=== PATIENT | male | born 1955 | race Caucasian/White ===

== ENCOUNTER → 2023-11-28 10:11 | Outpatient (BNVA) | payer MEDICARE, SELFPAY | PROVIDERS: PCP Family Medicine; Referring Provider Family Medicine; Visit Provider Nurse Practitioner Gerontology | DX: N43.3 Hydrocele, unspecified (principal) | CPT/HCPCS: 99204 ==

== ENCOUNTER 2023-12-04 07:00 | Day surgery (SDC) | payer MEDICARE, SELFPAY ==
[2023-12-04] VITALS (9 sets, daily range): BP systolic 83–143; BP diastolic 49–86; PULSE 61–76; RESP 13–16; TEMP 36.1–36.6; O2SAT 96; BMI 28.8
[2023-12-04] MEDS: Lactated Ringers 1,000 ML 80 ML IV (07:48)
--- NOTE | 2023-12-04 08:35 | W.PM.HP.N ---
Date of service: 12/04/23 Time of Service: 08:35 Assessment and Plan Assessment and plan (1) Hydrocele: Status: Acute Assessment and plan: Since his hydrocele is symptomatic, we will proceed with hydrocelectomy History of Present Illness History of Present Illness Chief Complaint: Right hydrocele Narrative: This is a 68 year old man who has a history of right scrotal enlargement that has been present for a few months. More recently, the right hemiscrotum has been increasing in size and becoming more uncomfortable. He was evaluated at another institution with a scrotal ultrasound. A large right hydrocele is described. He has not had any prior scrotal surgery. He has had a prior left inguinal hernia repair. Review of Systems Narrative: No fevers or chills No vision change or dysphasia No diabetes or thyroid dysfunction No shortness of breath, cough or hemoptysis No chest pain or palpitations No hepatitis, ulcers, jaundice, diarrhea or constipation No seizures, strokes or peripheral neuropathy No bleeding disorders or anemia Arthralgia, carpal tunnel. No gout PFSH All Active Problems (Updated 11/29/23 @ 14:34 by Kwaku Friedman) Hydrocele (Acute) Cubital tunnel syndrome (Acute) Bilateral knee pain (Acute) Bilateral hip pain (Acute) Acquired hallux valgus of right foot (Acute) Cubital tunnel syndrome on right (Acute) Right carpal tunnel syndrome (Acute) Medical History (Updated 11/29/23 @ 14:34 by Kwaku Friedman) Amputation toe Hallux valgus of right foot Screening for malignant neoplasm of prostate Routine adult health maintenance Impaired glucose tolerance Chest pain Stress related Lack of energy Low back pain Hypertension Psychophysiologic insomnia Impotence Hyperlipidemia Surgical History (Updated 11/29/23 @ 14:34 by Kwaku Friedman) Hx of knee surgery History of appendectomy H/O hernia repair Hx of colonoscopy Family History Daughter Epilepsy Social History Smoking/Tobacco Use Status: Never Smoking risk assessment performed?: Yes Alcohol Intake: current Alcohol Intake frequency: a few times a month Details: OCCASTIONALLY Drug use: Never Substance use type: does not use Housing: house Additional Social history: Unable to assess privately Meds Allergies and Home Medications Allergies Allergy/AdvReac Type Severity Reaction Status Date / Time manfredpril AdvReac cough Verified 12/04/23 07:27 Home Medications Medication Instructions Recorded Confirmed Type metoprolol succinate 100 mg 100 mg PO DAILY 07/11/17 12/04/23 History tablet,extended release 24 hr nitroglycerin 0.4 mg sublingual 0.4 mg sublingual Q5 MIN PRN X3 PRN 07/11/17 12/04/23 History tablet (Nitrostat) acetaminophen 500 mg tablet 500 mg PO .Q4-6 HRS PRN 04/23/20 12/04/23 History (Tylenol Extra Strength) ibuprofen 400 mg tablet 400 mg PO DAILY PRN 04/23/20 12/04/23 History atorvastatin 40 mg tablet 40 mg PO DAILY 11/22/23 12/04/23 History coenzyme Q10 75 mg capsule (Ultra 75 mg PO DAILY 11/22/23 12/04/23 History CoQ10) vitamin B complex (B 1 tab PO DAILY 11/22/23 12/04/23 History Complex-Vitamin B12 tablet) Exam Const General: cooperative and comfortable Neck Neck: supple Resp Effort & Inspection: normal respiratory effort Auscultation: clear to auscultation bilaterally Cardio Rate: regular rate Rhythm: regular rhythm GI Palpation: soft and no masses Neuro General: patient alert, patient awake and patient oriented x3 Results Imaging Additional studies: He had a scrotal ultrasound at [facility] 11/14/2023 that reports a large right hydrocele with normal testes Last Vital Signs Temp 36.6 C 12/04/23 07:29 Pulse 68 12/04/23 07:29 Resp 16 12/04/23 07:29 BP 143/86 H 12/04/23 07:29 Pulse Ox 96 12/04/23 07:29 Time Spent Time spent with Patient: <40 minutes Time was spent: other
--- NOTE | 2023-12-04 08:54 | W.ANESPRE ---
General Info Date of Service Date Performed: 12/04/23 Height: 5 ft 9 in Weight: 88.451 kg Body Mass Index (BMI): 28.8 Surgical Procedure: Operation Date: 12/04/23 08:40 Proposed Procedure Side Surgeon p Hydrocelectomy Right Luis Castro MD Meds Allergies and Home Medications Allergies Allergy/AdvReac Type Severity Reaction Status Date / Time lisinopril AdvReac cough Verified 12/04/23 07:27 Home Medication Medication Instructions Recorded metoprolol succinate 100 mg 100 mg PO DAILY 07/11/17 tablet,extended release 24 hr nitroglycerin 0.4 mg sublingual 0.4 mg sublingual Q5 MIN PRN X3 PRN 07/11/17 tablet (Nitrostat) acetaminophen 500 mg tablet 500 mg PO .Q4-6 HRS PRN 04/23/20 (Tylenol Extra Strength) ibuprofen 400 mg tablet 400 mg PO DAILY PRN 04/23/20 atorvastatin 40 mg tablet 40 mg PO DAILY 11/22/23 coenzyme Q10 75 mg capsule (Ultra 75 mg PO DAILY 11/22/23 CoQ10) vitamin B complex (B 1 tab PO DAILY 11/22/23 Complex-Vitamin B12 tablet) Current Visit Medications: Current Medications Generic Name Dose Route Start Last Admin Trade Name Freq PRN Reason Stop Dose Admin Ringer's Solution 1,000 mls @ 80 mls/hr 12/04/23 06:00 12/04/23 07:48 IV 12/04/23 23:59 80 mls/hr INFUSION MOHSEN Administration Cefazolin Sodium/Dextrose 2 gm in 50 mls @ 100 mls/hr 12/04/23 06:00 Ancef Duplex IVPB 12/04/23 23:59 PREOP MOHSEN IV Miscellaneous Supplies 1 each 12/04/23 06:00 Iv Access IV 12/04/23 23:59 DIRECTED MOHSEN Sodium Chloride 0 ml 12/04/23 06:00 Normal Saline Flush 10 Ml Syr IV 12/04/23 23:59 PRN PRN Sodium Chloride 0 ml 12/04/23 06:00 Normal Saline 10 Ml Vial IJ 12/04/23 23:59 DIRECTED PRN Sterile Water 0 ml 12/04/23 06:00 Water,Injection,Sterile 10 Ml Vial IJ 12/04/23 23:59 DIRECTED PRN PFSH Active Problems Active Problems: Problem Status Onset Code Hydrocele N43.3 Cubital tunnel syndrome G56.20 Bilateral knee pain M25.561, M25.562 Bilateral hip pain M25.551, M25.552 Acquired hallux valgus of right foot M20.11 Cubital tunnel syndrome on right G56.21 Right carpal tunnel syndrome G56.01 Medical History Medical History (Updated 11/29/23 @ 14:34 by Kwaku Friedman) Amputation toe Hallux valgus of right foot Screening for malignant neoplasm of prostate Routine adult health maintenance Impaired glucose tolerance Chest pain Stress related Lack of energy Low back pain Hypertension Psychophysiologic insomnia Impotence Hyperlipidemia Surgical History Surgical History (Updated 11/29/23 @ 14:34 by Kwaku Friedman) Hx of knee surgery History of appendectomy H/O hernia repair Hx of colonoscopy Tobacco Smoking/Tobacco Use Status: Never Alcohol Alcohol Intake: current Alcohol intake frequency: a few times a month Details: OCCASTIONALLY Substance Use Substance use: Never Substance use type: does not use Vital Signs and Lab Results Vital Signs Most Recent Vital Signs in EMR: Most Recent Vital Signs Temp Pulse Resp BP Pulse Ox 36.6 C 68 16 143/86 H 96 12/04/23 07:29 12/04/23 07:29 12/04/23 07:29 12/04/23 07:29 12/04/23 07:29 Lab Results Blood Type / Crossmatch: No Data to Display Complete Blood Count: No Data to Display Complete Metabolic Panel: No Data to Display Liver Function Panel: No Data to Display Coagulation Panel: No Data to Display Cardiac Panel: No Data to Display Arterial Blood Gas: No Data to Display Venous Blood Gas: No Data to Display Pancreas Panel: No Data to Display Thyroid Panel: No Data to Display Infectious Disease: No Data to Display Blood Cultures: No Data to Display Toxicology Panel: No Data to Display Anesthesia Assessment and Plan Anesthesia History Personal History: No History of Anesthesia Complications Family History: No Family History of Anesthesia Complications Exercise Tolerance Exercise Tolerance: Metabolic Equivalents>4 Pertinent Negatives Pertinent Negatives: No Symptoms of GERD Cardiac & Pulmonary Exam Cardiac Exam: Normal S1/S2 Heart Sounds Pulmonary Exam: Clear Bilateral Breath Sounds Implantable Cardiac Device Does patient have a Pacemaker or an ICD?: No Airway Exam Known Difficult Airway: No Mallampati Class: 2 Mouth Opening: Normal (> 3cm) Thyromental Distance: Greater than 3 cm Neck Range of Motion: Full ROM Neck Circumference: Normal Teeth Condition: Normal Dentition ASA Classification ASA Score: ASA 2 Emergency Case?: No NPO Status NPO Status: NPO Clears >2 hours, Solids >8 hours Anesthesia Plan Resuscitation Status: Full Code Anesthesia Technique: General Anesthesia Airway Planned: LMA Monitors Used: Standard Monitors
[2023-12-04] MEDS: ceFAZolin 2 GM/50 ML BAG IVPB (09:21)
[2023-12-04] MEDS: Bacitracin 1 PACKET (09:28)
[2023-12-04] MEDS: Bupivacaine 0.25% Pres-Free 30 ML VIAL (09:28)
--- NOTE | 2023-12-04 09:55 | W.PM.DSUDISC ---
Date of service: 12/04/23 Time of Service: 09:55 Discharge Plan Disposition Patient Disposition: Home Condition: Stable Discharge Details Reason For Visit: hydrocelectomy Attending Provider: Luis Castro Primary Care Provider: Irving Yang Home Meds and New Rx's Prescriptions: New oxycodone 5 mg tablet 5 - 10 mg PO Q6H PRN (Reason: pain) Qty: 20 0RF No Action ibuprofen 400 mg tablet 400 mg PO DAILY PRN acetaminophen [Tylenol Extra Strength] 500 mg tablet 500 mg PO .Q4-6 HRS PRN atorvastatin 40 mg tablet 40 mg PO DAILY Ultra CoQ10 75 mg capsule 75 mg PO DAILY vitamin B complex [B Complex-Vitamin B12] Tablet 1 tab PO DAILY metoprolol succinate 100 MG tablet extended release 24 hr 100 mg PO DAILY nitroglycerin [Nitrostat] 0.4 MG tablet, sublingual 0.4 mg Sublingual Q5 MIN PRN X3 PRN Discharge Instructions Additional Instructions: scrotal support until swelling resolves ice pack to scrotum (bag of frozen peas) on 30 min off 30 min while awake followup 1 to 2 weeks Activity:: no lifting over 10 pounds until followup visit Remove Dressings/Wound Care:: 24 hours Shower/Bathe:: 24 hours Diet:: As Tolerated Discharge Orders Discharge Orders: Discharge Order (Routine); Ordered 12/04/23 Ordered By: Luis Castro DS: Diagnosis Discharge Diagnosis (1) Hydrocele: Status: Acute
--- NOTE | 2023-12-04 10:00 | W.PM.OP ---
Date of service: 12/04/23 Time of Service: 10:00 Operative Note Operative Note DATE OF PROCEDURE: 12/04/23 PRE-OP DIAGNOSIS: right hydrocele POST-OP DIAGNOSIS: same PROCEDURE: Right hydrocelectomy SURGEON: Luis Castro SPRINKLER INSPECTOR: Rahul Hubbard ANESTHESIA TYPE: Local By Surgeon and General:No Airway Refer to Anesthesia Record ESTIMATED BLOOD LOSS: 5 PATHOLOGY: none sent COMPLICATIONS: None Patient was transported to: PACU Patient's condition: stable Implants: none Indications: This is a 68-year-old gentleman who has noticed a progressively increasing right scrotal mass over the past 3 to 4 months. He was evaluated with a scrotal ultrasound which demonstrated a large hydrocele with a normal underlying testis. Since the hydrocele was symptomatic for him, he has elected to move ahead with a hydrocelectomy Findings: large right hydrocele two small keratin pearlys normal appearing testes Procedure Description: The patient was given IV antibiotics and brought to the operating room on 12/04/2023. After successful induction of general anesthesia, he was placed in the supine position. His genitalia was prepped and draped. A scrotal field block was performed using quarter percent Marcaine. A transverse scrotal incision was made and the incision was extended down through the dartos muscle. We then came up on the anterior surface of the hydrocele. We were then able to shell out the enlarged testis still within the tunica vaginalis from the overlying dartos muscle. The testis and hydrocele were then delivered through the incision. The hydrocele sac was opened anteriorly and a large amount of yellowish fluid was drained. The underlying testis appeared normal. 2 small keratin pearls were identified within the hydrocele sac. The access hydrocele sac was excised using the Bovie. The sac was then everted behind the testis and the edges of the sac were reapproximated with a running 3-0 chromic suture. We used locking sutures for hemostasis. Once hemostasis had been obtained, a cord block was performed using quarter percent Marcaine. The testis was then delivered back within the right hemiscrotum. The dartos muscle was reapproximated with simple interrupted 3-0 chromic sutures. The skin was closed with simple interrupted 4-0 Vicryl sutures. Dermabond was applied followed by a fluff dressing and a scrotal support. The patient tolerated this procedure well with no complications. He was taken to the recovery room in stable condition.
--- NOTE | 2023-12-04 11:10 | W.ANESPOSTOP ---
Postoperative Evaluation Date, Time and Location Date Performed: 12/04/23 Time Performed: 11:11 Patient Location: Day Surgery Unit Vital Signs Most Recent Imported Vital Signs: Most Recent Vital Signs Temp Pulse Resp BP Pulse Ox 36.2 C L 72 16 103/75 96 12/04/23 10:51 12/04/23 10:51 12/04/23 10:51 12/04/23 10:51 12/04/23 10:51 Pain Score Most Recent Pain Score: Most Recent Pain Score Pain Level 0 12/04/23 10:51 Assessment Mental Status: Awake (Alert & Oriented to Patient Baseline) Airway and Respiratory Function: Patent airway with normal (patient baseline) respiratory exam Cardiovascular Function: Hemodynamically Stable Hydration Status: Adequately Hydrated Nausea & Vomiting: No Nausea or Vomiting Pain: Pt. Denies Any Pain Peripheral Nerve Block: Patient did not receive a nerve block
== END 2023-12-04 11:55 | disposition home or self-care (01) ==
PROVIDERS: PCP Family Medicine; Visit Provider Urology
PROC: (CPT 55040; principal; 2023-12-04 08:30)
DX: N43.3 Hydrocele, unspecified (principal); I10 Essential (primary) hypertension; E78.5 Hyperlipidemia, unspecified
CPT/HCPCS: 55040; J0665; J0690; J1100; J2001; J2250; J2405; J2704; J3010

== ENCOUNTER → 2023-12-14 12:38 | Outpatient (BNVA) | payer MEDICARE, SELFPAY | PROVIDERS: PCP Family Medicine; Referring Provider Family Medicine; Visit Provider Urology | DX: Z48.816 Encounter for surgical aftercare following surgery on the genitourinary system (principal); N43.3 Hydrocele, unspecified ==

== ENCOUNTER → 2024-04-29 09:08 | Outpatient (BNVA) | payer MEDICARE, SELFPAY | PROVIDERS: PCP Family Medicine; Referring Provider Family Medicine | DX: M16.0 Bilateral primary osteoarthritis of hip (principal) | CPT/HCPCS: 99213 ==

== ENCOUNTER 2024-07-19 02:46 | Outpatient (CLI) | payer MEDICARE, SELFPAY ==
[2024-07-19 11:40] LABS: HCT 48.6 % (40.0-50.0); HGB 16.2 g/dL (13.5-17.5); MCHC 33.3 % (32.0-36.0); MCV 93 fL (80-95); MPV 8.2 fL (8.0-11.0); Platelet Count 221 10^3/uL (130-400); RBC 5.22 10^6/uL (4.36-5.78); RDW 12.8 % (11.8-14.1); RDW-SD 43.5 fL; WBC 7.61 10^3/uL (4.4-10.8)
[2024-07-19 11:48] LABS: Anion Gap 5.4 mmol/L (3-11); BUN 14 mg/dL (7-18); CO2 31.6 mmol/L (21.0-32.0); Calcium 9.8 mg/dL (8.5-10.1); Chloride 104 mmol/L (98-107); Estimated GFR 82.49 (mL/min/1.73m2); Glucose 101 mg/dL (74-106); Potassium 5.3 mmol/L (3.5-5.1); Sodium 141 mmol/L (136-145)
== END 2024-07-19 02:47 | disposition home or self-care (01) ==
LOC: LBO 02:47
PROVIDERS: PCP Family Medicine; Visit Provider Student in an Organized Health Care Education/Training Program
DX: M25.551 Pain in right hip (principal); M25.552 Pain in left hip; Z01.818 Encounter for other preprocedural examination
CPT/HCPCS: 36415; 80048; 85027; 86850; 86900; 86901; 99024

== ENCOUNTER 2024-07-19 10:32 | Outpatient (CLI) | payer MEDICARE, SELFPAY ==
--- NOTE | 2024-07-19 10:00 | DI.RAD_ITS ---
Exam(s) XR PELVIS AP EXAM: XR PELVIS AP CLINICAL HISTORY: pre op BILAT LEXY. TECHNIQUE: 2D digital imaging was performed.One images were obtained. COMPARISON: CR XR HIPS BILAT 1 VW EA W/AP PELVIS from 09/28/2023 FINDINGS: BONES: No acute fracture is present. No bony destructive lesion is seen. JOINTS: No dislocation present. There are marked degenerative changes seen in the hips bilaterally ch aracterized by joint space narrowing and osteophytes. The findings are most marked on the right with there is [id number] present. SOFT TISSUE: Vascular calcifications are present. IMPRESSION: Marked hip osteoarthritis. DATA REPOSITORY: RADIATION DOSE DELIVERED:
== END 2024-07-19 10:33 | disposition home or self-care (01) ==
LOC: DIORS 10:32
PROVIDERS: PCP Family Medicine; Referring Provider Family Medicine; Visit Provider Physician Assistant
DX: M16.0 Bilateral primary osteoarthritis of hip (principal); Z01.818 Encounter for other preprocedural examination
CPT/HCPCS: 36415; 80048; 85027; 86850; 86900; 86901; 99024; 72170

== ENCOUNTER 2024-07-30 06:59 | Day surgery (SDC) | payer MEDICARE, SELFPAY ==
[2024-07-30] VITALS (16 sets, daily range): BP systolic 95–167; BP diastolic 53–84; PULSE 61–76; RESP 10–18; TEMP 36.4–36.8; O2SAT 94–100; BMI 29.2
--- NOTE | 2024-07-30 07:30 | W.PM.DSUDISC ---
Date of service: 07/30/24 Time of Service: 10:45 Discharge Plan Disposition Patient Disposition: Home Condition: Good Discharge Details Reason For Visit: Bilateral hip DJD Attending Provider: Berhane Rizvi Primary Care Provider: Irving Yang Home Meds and New Rx's Prescriptions: New celecoxib [Celebrex] 200 mg capsule 200 mg PO BID PRNQty: 60 0RF Rx Instructions: Take one tablet twice daily for pain and inflammation aspirin 81 mg tablet,delayed release (DR/EC) 81 mg PO BID 30 Days Qty: 60 0RF acetaminophen 500 mg tablet 1,000 mg PO Q8H PRN Qty: 90 0RF Rx Instructions: Take two tablets up to every 8 hours as needed for pain pantoprazole 40 mg tablet,delayed release (DR/EC) 40 mg PO DAILY Qty: 14 0RF dexamethasone 4 mg tablet 4 mg PO DAILY Qty: 2 0RF Rx Instructions: Take one tablet once daily for two days docusate sodium [Colace] 100 mg capsule 100 mg PO BID Qty: 30 0RF oxycodone 5 mg tablet 5 mg PO Q6H PRNQty: 12 0RF Rx Instructions: Take one tablet up to every 6 hours as needed for severe postoperative pain Continued coenzyme Q10 [Co Q-10] 200 mg capsule 200 mg PO DAILY multivitamin Tablet 1 tab PO DAILY pyridoxine (vitamin B6) 100 mg tablet 100 mg PO DAILY atorvastatin 40 mg tablet 40 mg PO DAILY metoprolol succinate 100 MG tablet extended release 24 hr 100 mg PO DAILY nitroglycerin [Nitrostat] 0.4 MG tablet, sublingual 0.4 mg Sublingual Q5 MIN PRN X3 PRN Discontinued ibuprofen 400 mg tablet 400 mg PO DAILY PRN acetaminophen [Tylenol Extra Strength] 500 mg tablet 500 mg PO .Q4-6 HRS PRN Discharge Instructions Additional Instructions: Total Hip Discharge Instructions Activity: The most important activity is to walk. You should try to take short walks a few times a day. You have no restrictions on movement or positioning, but do not try to force what you do. You will find some stiffness and weakness with hip flexion (lifting your knee). Do not try to strengthen this too early, continue to practice walking and stairs and this will come. - Outpatient physical therapy can be helpful to help return you to a normal gait and improve your flexibility and strength. This can start around 2 weeks. For some patients, it?s not necessary. Usually this is determined at the time of discharge or at the first post-operative visit. - You should wear the IGLESIA hose on both legs for 2 weeks. Dressing: Keep the surgical dressing in place for at least one week. After the first week it may be removed and replace with light gauze and tape or nothing. It may get wet after 3 days but avoid soaking the dressing. If it gets wet, just lightly pat dry. It is important to always keep some gauze between skin folds, especially when you are sitting. Spend some time with the wound exposed when you are lying flat as the incision does wrinkle onto itself. Medications: - You should take Tylenol and an anti-inflammatory Celebrex as your primary pain control medications. If the Celebrex is too expensive or not covered, please call the office for another alternative (Advil/Ibuprofen or Naproxen/Aleve). - You have been prescribed a stronger pain medication Oxycodone for breakthrough pain, take as needed as prescribed. - You have also been prescribed a stomach acid reduction agent Pantoprozole to help reduce stomach acid and reflux. - You have also been prescribed Decadron to help with post-operative nausea and pain. You will take this for two days starting tomorrow. - You will be taking Aspirin 81mg twice a day for DVT prevention unless instructed otherwise. - If you have constipation you should take Colace (which has been prescribed) or Miralax (which is available [id number]). It takes most people 3-4 days to have a bowel movement. Follow-up: 2 weeks If you have any acute concerns or questions, please do not hesitate to contact the office at [phone]. You may contact Dr. Rizvi with any questions after hours through the hospital at [phone] or on his cell phone at [phone]. Referrals: Berhane Rizvi MD [ [facility] STAFF PHYSICIAN] - Equipment/Supplies: Walker Activity:: Elevate Remove Dressings/Wound Care:: Do Not Remove Shower/Bathe:: Cover Diet:: As Tolerated Discharge Orders Discharge Orders: Discharge Order (Routine); Ordered 07/30/24 Ordered By: Deisy Hoyos
--- NOTE | 2024-07-30 07:50 | ANES.PREOP_ITS ---
General Info Date of Service Date Performed: 07/30/24 Height: 5 ft 9 in Weight: 90 kg Body Mass Index (BMI): 29.2 Surgical Procedure: Operation Date: 07/30/24 08:45 Proposed Procedure Side Surgeon p Hip Total Hip Anterior Bilateral, ACTIS Bilateral Berhane Rizvi MD Meds Allergies and Home Medications Allergies Allergy/AdvReac Type Severity Reaction Status Date / Time lisinopril AdvReac cough Verified 07/30/24 07:22 Home Medication ?Medication ?Instructions ?Recorded metoprolol succinate 100 mg 100 mg PO DAILY 07/11/17 tablet,extended release 24 hr nitroglycerin 0.4 mg sublingual 0.4 mg sublingual Q5 MIN PRN X3 PRN 07/11/17 tablet (Nitrostat) atorvastatin 40 mg tablet 40 mg PO DAILY 11/22/23 coenzyme Q10 200 mg capsule (Co 200 mg PO DAILY 04/29/24 Q-10) multivitamin 1 tab PO DAILY 04/29/24 pyridoxine (vitamin B6) 100 mg 100 mg PO DAILY 04/29/24 tablet acetaminophen 500 mg tablet 1,000 mg (2 x 500 mg) PO Q8H PRN 07/30/24 pain #90 tabs aspirin 81 mg tablet,delayed 81 mg PO BID 30 days #60 tabs 07/30/24 release celecoxib 200 mg capsule (Celebrex) 200 mg PO BID PRN #60 caps 07/30/24 dexamethasone 4 mg tablet 4 mg PO DAILY #2 tabs 07/30/24 docusate sodium 100 mg capsule 100 mg PO BID #30 caps 07/30/24 (Colace) oxycodone 5 mg tablet 5 mg PO Q6H PRN #12 tabs 07/30/24 pantoprazole 40 mg tablet,delayed 40 mg PO DAILY #14 tabs 07/30/24 release Current Visit Medications: Current Medications Generic Name Dose Route Start Last Admin Trade Name Freq PRN Reason Stop Dose Admin Acetaminophen 1,000 mg 07/30/24 06:00 Acetaminophen 500 Mg Tab PO 08/28/24 23:59 PREOP MOHSEN Celecoxib 400 mg 07/30/24 06:00 Celecoxib 200 Mg Cap PO 08/28/24 23:59 PREOP MOHSEN Hydromorphone HCl 0.5 mg 07/30/24 07:27 Hydromorphone 2 Mg/Ml Syr IVP 08/29/24 07:26 Q2H PRN PRN Ringer's Solution 1,000 mls @ 80 mls/hr 07/30/24 06:00 IV 08/28/24 23:59 INFUSION MOHSEN Cefazolin Sodium/Dextrose 2 gm in 50 mls @ 100 mls/hr 07/30/24 06:00 Ancef Duplex IVPB 08/28/24 23:59 PREOP MOHSEN Tranexamic Acid/Sodium Chloride 1,000 mg in 100 mls @ 600 mls/hr 07/30/24 06 :00 IVPB 08/28/24 23:59 PREOP MOHSEN Tranexamic Acid/Sodium Chloride 1,000 mg in 100 mls @ 600 mls/hr 07/30/24 06:00 IVPB 08/28/24 23:59 DIRECTED MOHSEN Cefazolin Sodium/Dextrose 1 gm in 50 mls @ 100 mls/hr 07/30/24 08:00 Ancef Duplex IVPB 07/31/24 00:29 Q8H MOHSEN IV Miscellaneous Supplies 1 each 07/30/24 06:00 Iv Access IV 08/28/24 23:59 DIRECTED MOHSEN Oxycodone HCl 0 mg 07/30/24 07:27 Oxycodone 5 Mg Tab PO 08/29/24 07:26 Q3H PRN PRN Pain Sodium Chloride 0 ml 07/30/24 06:00 Normal Saline Flush 10 Ml Syr IV 08/28/24 23:59 PRN PRN Sodium Chloride 0 ml 07/30/24 06:00 Normal Saline 10 Ml Vial IJ 08/28/24 23:59 DIRECTED PRN Sterile Water 0 ml 07/30/24 06:00 Water,Injection,Sterile 10 Ml Vial IJ 08/28/24 23:59 DIRECTED PRN PFSH Active Problems Active Problems: Problem Status Onset Code Bilateral primary osteoarthritis of hip Chronic M16.0 Cubital tunnel syndrome Acute G56.20 Bilateral knee pain Acute M25.561, M25.562 Bilateral hip pain Acute M25.551, M25.552 Acquired hallux valgus of right foot Acute M20.11 Cubital tunnel syndrome on right Acute G56.21 Right carpal tunnel syndrome Acute G56.01 Medical History Medical History (Updated 07/30/24 @ 08:17 by Chun Etienne RN) Hydrocele Amputation toe Hallux valgus of right foot Screening for malignant neoplasm of prostate Routine adult health maintenance Impaired glucose tolerance Chest pain in 2010 - 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 Beasley History of hydrocelectomy Hx of knee surgery (~2019) Right patellar tendon History of appendectomy H/O hernia repair Left inguinal hernia repair Hx of colonoscopy Tobacco Smoking/Tobacco Use Status: Never Alcohol Alcohol Intake: current Alcohol intake frequency: a few times a month Details: OCCASTIONALLY Substance Use Substance use: Never Substance use type: does not use Vital Signs and Lab Results Vital Signs Most Recent Vital Signs in EMR: Most Recent Vital Signs Temp Pulse Resp BP Pulse Ox 36.8 C 63 17 167/84 H 98 07/30/24 07:26 07/30/24 07:26 07/30/24 07:26 07/30/24 07:26 07/30/24 07:26 Lab Results Blood Type / Crossmatch: Antibody Screen NEGATIVE 07/19/24 Complete Blood Count: White Blood Count 7.61 10^3/uL (4.4-10.8) 07/19/24 11:25 Red Blood Count 5.22 10^6/uL (4.36-5.78) 07/19/24 11:25 Hemoglobin 16.2 g/dL (13.5-17.5) 07/19/24 11:25 Hematocrit 48.6 % (40.0-50.0) 07/19/24 11:25 Platelet Count 221 10^3/uL (130-400) 07/19/24 11:25 Complete Metabolic Panel: Sodium 141 mmol/L (136-145) 07/19/24 11:25 Potassium 5.3 mmol/L (3.5-5.1) H 07/19/24 11:25 Chloride 104 mmol/L (98-107) 07/19/24 11:25 Carbon Dioxide 31.6 mmol/L (21.0-32.0) 07/19/24 11:25 BUN 14 mg/dL (7-18) 07/19/24 11:25 Creatinine 1.0 mg/dL (0.70-1.30) 07/19/24 11:25 Est GFR (CKD-EPI 2020) 82.49 (mL/min/1.73m2) 07/19/24 11:25 Calcium 9.8 mg/dL (8.5-10.1) 07/19/24 11:25 Glucose 101 mg/dL (74-106) 07/19/24 11:25 Liver Function Panel: No Data to Display Coagulation Panel: No Data to Display Cardiac Panel: No Data to Display Arterial Blood Gas: No Data to Display Venous Blood Gas: No Data to Display Pancreas Panel: No Data to Display Thyroid Panel: No Data to Display Infectious Disease: No Data to Display Blood Cultures: No Data to Display Toxicology Panel: No Data to Display Anesthesia Assessment and Plan Anesthesia History Personal History: No History of Anesthesia Complications Family History: No Family History of Anesthesia Complications Exercise Tolerance Exercise Tolerance: Metabolic Equivalents>4 Pertinent Negatives Pertinent Negatives: No Symptoms of GERD Cardiac & Pulmonary Exam Cardiac Exam: Normal S1/S2 Heart Sounds Pulmonary Exam: Clear Bilateral Breath Sounds Implantable Cardiac Device Does patient have a Pacemaker or an ICD?: No Airway Exam Known Difficult Airway: No Mallampati Class: 2 Mouth Opening: Normal (> 3cm) Thyromental Distance: Greater than 3 cm Neck Range of Motion: Full ROM Neck Circumference: Normal Teeth Condition: Normal Dentition ASA Classification ASA Score: ASA 2 Emergency Case?: No NPO Status NPO Status: NPO Clears >2 hours, Solids >8 hours Anesthesia Plan Resuscitation Status: Full Code Anesthesia Technique: Spinal Anesthesia Airway Planned: Natural Airway Monitors Used: Standard Monitors
[2024-07-30] MEDS: Lactated Ringers 1,000 ML 80 ML IV (08:14)
[2024-07-30] MEDS: Acetaminophen 500 MG TAB 1000 MG PO (08:15)
[2024-07-30] MEDS: Celecoxib 200 MG CAP 400 MG PO (08:15)
[2024-07-30] MEDS: ceFAZolin 2 GM/50 ML BAG IVPB (09:08)
[2024-07-30] MEDS: TRANEXAMIC ACID/SOD. CHL. 1,000 MG/100 ML BAG 600 MG IVPB ×2 (09:18→10:37)
--- NOTE | 2024-07-30 10:15 | DI.RAD_ITS ---
Exam(s) XR HIP RT IN OR EXAM: XR HIP RT IN OR CLINICAL HISTORY: Bilateral primary osteoarthritis of hip TECHNIQUE: 2D and realtime digital imaging was performed. CONTRAST MATERIAL: Refer to procedure report. COMPARISON: CR XR PELVIS AP from 07/19/2024 FINDINGS: Fluoroscopy was provided for Dr. Rizvi during the performance of a right total hip replacement. Please refer to the procedure report for complete details. Ka,r=4.56 mGy IMPRESSION: RADIATION DOSE DELIVERED: 0.0 0.0 0
--- NOTE | 2024-07-30 11:59 | DI.RAD_ITS ---
Exam(s) XR HIP LT IN OR EXAM: XR HIP LT IN OR CLINICAL HISTORY: Bilateral primary osteoarthritis of hip TECHNIQUE: 2D and realtime digital imaging was performed. CONTRAST MATERIAL: Refer to procedure report. COMPARISON: CR XR PELVIS AP from 07/19/2024 FINDINGS: Fluoroscopy was provided for Dr. Rizvi during the performance of a left total hip replacement. P lease refer to the procedure report for complete details. Ka,r=2.06 mGy IMPRESSION: RADIATION DOSE DELIVERED: 0.0 0.0 0
--- NOTE | 2024-07-30 11:59 | W.PM.OP ---
Date of service: 07/30/24 Time of Service: 09:15 Operative Note Operative Note DATE OF PROCEDURE: 07/30/24 PRE-OP DIAGNOSIS: Bilateral Hip Osteoarthritis POST-OP DIAGNOSIS: same PROCEDURE: Bilateral Anterior Total Hip Arthroplasty with Intraoperative Navigation SURGEON: Berhane Rizvi DAIRY ASSOCIATE: Deisy Hoyos ANESTHESIA TYPE: Spinal Refer to Anesthesia Record ESTIMATED BLOOD LOSS: 250 PATHOLOGY: none sent COMPLICATIONS: None Patient was transported to: PACU Patient's condition: stable Implants: RIGHT: 1. Depuy [place] Acetabular Component, 52mm 2. Depuy Acetabular Liner, [id number] 3. Depuy Actis High Offset Femoral Stem, Size 5 4. Depuy Altrx Ceramic Femoral Head, Size 36+5mm LEFT: 1. Depuy [place] Acetabular Component, 52mm 2. Depuy Acetabular Liner, [id number] 3. Depuy Actis High Offset Femoral Stem, Size 5 4. Depuy Altrx Ceramic Femoral Head, Size 36+5mm Indications: I have seen Fei in clinic for symptoms of hip arthritis, confirmed with radiographic findings. He has exhausted nonoperative methods and was having significant limitations in daily function and desired better function and less pain. I discussed the technical details of a hip replacement. I explained the risks of the procedure to include, but not limited to, bleeding, infection, pain, stiffness, fracture, damage to nerves and vessels, damage to muscles and tendons, loosening, instability, leg length inequality, need for repeat procedure, blood clot and cardiopulmonary demise. Despite these risks, Fei elected to proceed. Findings: There was significant signs of arthritis throughout both hips. There is notable osteophytes about both hips. Soft tissue were contracted particularly on the left side. Procedure Description: Fei was greeted in the preoperative holding area where the correct side was identified and marked. The consent was reviewed with the patient and signed. The history and physical was updated. All questions were answered. Fei was taken back to the operating room. A spinal anesthestic was then administered. The patient was placed into the supine position on the HANA table. Both feet were wrapped with Webrill cotton wrap along with Coban. RIGHT Side The feet were placed in specialized boots for the HANA table, well seated within the boot and secured. SCDs were applied. The patient was then slid down onto a peroneal post. A preoperative AP hip was obtained to serve as a reference for determining leg lengths. Prophylactic antibiotics in the form of Cefazolin were administered. 1g of Tranxemic Acid was given intravenously within 30 minutes of incision. The right leg was then prepped with Chloraprep and draped in a standard fashion. A second prep with Chloraprep was performed prior to placement of a shower-curtain type drape with Iodine impregnated skin protection. A timeout to confirm correct identity, side and site, procedure, allergies, anesthesia, and medical concerns was performed. An obliquely oriented incision was made starting lateral to the ASIS and running distal over the Tensor Fascia Rex (TFL) muscle belly toward the fibular head, approximately 10cm. The skin and soft tissue was dissected sharply, through Rico?s fascia, and to the fascia of the TFL. With the fascia and superior border of the IT band identified, the fascia was incised with a new knife just above any perforators from the IT band. The TFL muscle belly was bluntly dissected away from the fascia and moved laterally. The fat between TFL and rectus was identified to ensure the dissection was not within the TFL. Blunt dissection created space between abductors and the capsule and retractor was placed over the lateral femoral neck. The fibers of the rectus femoris tendon were identified and these were freed from the anterior capsule. A second cobra retractor was placed around the medial femoral neck. The TFL was further retracted laterally to show the deep fascia. Careful dissection through this layer identified three main crossing vessels of the lateral femoral circumflex. These were cauterized in multiple locations and then cut without any noticeable bleeding. The TFL was further released bluntly from the deep fascia to expose anterior hip capsule and fat The Ruiz orthopaedic retractor was then placed beneath the TFL and against sartorius and medial soft tissues to protect and retract the soft tissues. A T-capsulotomy was then performed starting at the superior lateral acetabulum and moving distally to the intertrochanteric ridge. These capsular flaps were tagged with a No. 1 Ethibond and elevated from within. The capsular flaps were released to the shoulder of the lateral neck and to the lesser trochanter to give excellent visualization of the proximal femur. There is significant amount of osteophytes and irregularity of the bone in this area. Capsule was notably contracted. A neck osteotomy was performed using an oscillating saw based on preoperative templates. This cut started in the shoulder and of the lateral neck and exited medially. The saw was at all times directed medially to avoid injury to the greater trochanter. Gentle traction was applied to the leg and the osteotomy opened. The femoral head was removed with a corkscrew, making sure to protect the TFL on its exit. This was measured on the back table to determing the starting reamer size. Portions of the rectus obscuring visualization were minimally elevated off the superior acetabulum. An anterior retractor was placed over the anterior wall between capsule and labrum and attached to the Gripper retraction system. A posterior retractor was placed similarly. This provided excellent visualization. The contents of the cotyloid fossa were removed with electrocautery and the labrum was removed with a knife. There was a notable floor osteophyte. There was significant chondromalacia of the superior acetabulum. Acetabular reaming began with a 46mm reamer. This first reaming was directed anterior to posterior and medial to get down to the true floor. This was inspected and reamed until the true floor was reached. The anterior retractor was then released and entry and exit was provided by traction on the capsular flaps. I then reamed sequentially up to a 52mm reamer where good fit was obtained. The larger reamers were oriented based on anatomical reference of the anterior and lateral escobar to ensure proper abduction and anteversion. Positioning and size was confirmed with the fluoroscopy. A 52mm Depuy [place] acetabular component was selected. The acetabulum was reamed around the periphery with the selected acetabular size to prevent a rim fit. The deep tissues were irrigated. The acetabular component was then impacted in a position of about 40-45 degrees of abduction and 15-20 degrees of anteversion, using the patient?s anatomy as the ultimate landmark. Fluoroscopy was used to confirm this. There was excellent digital forensics investigator of the acetabular component and the inserting handle was removed. The acetabular liner, Depuy [id number] polyethylene liner, was inserted and lined up with the tines of the acetabular component. There was no soft tissue interposition. The liner was then impacted into position and confirmed to be well-seated. A portion of the summer-articular cocktail was then injected around the acetabulum into the capsule and periosteum. This cocktail consisted of 123mg of Ropivacaine, 0.25mg of Epinephrine, 0.04mg of Clonidine, and 15mg of Ketorolac, diluted to 50cc. Traction was released from the femur. The leg was rotated to 120 degrees. Any remaining medial capsule was released until the lesser trochanter was easily palpable. A Vasquez retractor was placed medially. The lateral capsule was further released into the shoulder to allow access to the greater trochanter. A Vasquez retractor was placed over the greater trochanter which allowed the trochanter to flip in front of the capsule for excellent exposure. The leg was brought down into maximal extension and 20 degrees of adduction while ensuring there was no impingement on the acetabulum. Any remnant capsule within the trochanter was released. Piriformis and obturator externis were identified and protected. There was excellent access to the proximal femur. The lateral neck remnant was removed with a rongeur. A blunt canal probe was used to identify the canal and trajectory for later broaching. A box osteotome initiated the broach course. A small curved rasp and a curved curette were used to work laterally. Broaching then began with a size 8 Corail broach. This was inserted manually around the trochanter and into the canal before mallet blows. The broach was seated to a few millimeters below the cut level based on the neck cut and the preoperative template. Sequential broaching was continued with the Medivancese pneumatic broaching device until a tight fit was obtained with good rotational control of the femur. A trial high offset neck was inserted along with a +5 trial head. The leg was brought out of extension and adduction and then reduced with traction and internal rotation. The leg was stable anteriorly in a position of 30 degrees of extension and 90 degrees of external rotation. Fluoroscopy was used to ensure there was no fracture and the stem was seated well. Leg lengths were checked with an AP pelvis and pelvic reference points. LiquidM navigation system was used to confirm appropriate positioning and leg length and offset. Once content with the desired offset and leg lengths, the leg was brought back into extension, external rotation and adduction. The periosteum and surrounding tissue was injected with remaining portion of the summer-articular cocktail. The proximal femur was irrigated as well as the deep tissues. The Depuy Actis high offset stem, size 5, was then manually inserted into the proximal femur making sure to control rotation. It was then malleted into position with light blows, giving breaks to allow bone expansion and decrease risk of fracture. The selected Depuy Altrx Ceramic Head, size 36+5mm, was then placed onto the clean and dry trunnion and secured with impaction onto the tapered fit. The leg was brought back out of extension and adduction and reduced with traction and internal rotation. Stability was confirmed with no shuck at 90 degrees of external rotation and 30 degrees of extension. No impingement through range of motion arc. Final x-ray images were obtained with fluoroscopy to confirm adequate positioning and no intraoperative fracture. The deep tissues were thoroughly irrigated with Irrisept chlorhexadine solution. The second dose of TXA 1g was administered intravenously.The capsule was then reapproximated with the previously placed Ethibond sutures. The TFL fascia was finally closed with a No. 2 Stratafix, barbed suture. Deep tissues were then reapproximated with 0 Vicryl and a running 2-0 Vicryl. The skin was closed with a running 4-0 Monocryl in a subcuticular fashion. This was reinforced with skin glue. A Mepilex silver dressing was applied. LEFT Side Keeping the back table sterile, the drapes were removed, light handles changed, and fluoroscopy switched rooms sides. Once again, a AP hip was obtained to serve as a reference for determining leg lengths. The left leg was then prepped with Chloraprep and draped in a standard fashion. A second prep with Chloraprep was performed prior to placement of a shower-curtain type drape with Iodine impregnated skin protection. A timeout was once again performed to ensure that there were no issues to proceed. An obliquely oriented incision was made starting lateral to the ASIS and running distal over the Tensor Fascia Rex (TFL) muscle belly toward the fibular head, approximately 10cm. The skin and soft tissue was dissected sharply, through Rico?s fascia, and to the fascia of the TFL. With the fascia and superior border of the IT band identified, the fascia was incised with a new knife just above any perforators from the IT band. The TFL muscle belly was bluntly dissected away from the fascia and moved laterally. The fat between TFL and rectus was identified to ensure the dissection was not within the TFL. Blunt dissection created space between abductors and the capsule and retractor was placed over the lateral femoral neck. The fibers of the rectus femoris tendon were identified and these were freed from the anterior capsule. A second cobra retractor was placed around the medial femoral neck. The TFL was further retracted laterally to show the deep fascia. Careful dissection through this layer identified three main crossing vessels of the lateral femoral circumflex. These were cauterized in multiple locations and then cut without any noticeable bleeding. The TFL was further released bluntly from the deep fascia to expose anterior hip capsule and fat The Ruiz orthopaedic retractor was then placed beneath the TFL and against sartorius and medial soft tissues to protect and retract the soft tissues. A T-capsulotomy was then performed starting at the superior lateral acetabulum and moving distally to the intertrochanteric ridge. These capsular flaps were tagged with a No. 1 Ethibond and elevated from within. The capsular flaps were released to the shoulder of the lateral neck and to the lesser trochanter to give excellent visualization of the proximal femur. Once again, there is notable contraction of the capsular tissues and release was challenging given the regularity of the bone and the osteophytes present throughout. A neck osteotomy was performed using an oscillating saw based on preoperative templates. This cut started in the shoulder and of the lateral neck and exited medially. The saw was at all times directed medially to avoid injury to the greater trochanter. Gentle traction was applied to the leg and the osteotomy opened. The femoral head was removed with a corkscrew, making sure to protect the TFL on its exit. This was measured on the back table to determing the starting reamer size. Portions of the rectus obscuring visualization were minimally elevated off the superior acetabulum. An anterior retractor was placed over the anterior wall between capsule and labrum and attached to the Gripper retraction system. A posterior retractor was placed similarly. This provided excellent visualization. The contents of the cotyloid fossa were removed with electrocautery and the labrum was removed with a knife. There was significant chondromalacia of the superior acetabulum. Acetabular reaming began with a 46mm reamer. This first reaming was directed anterior to posterior and medial to get down to the true floor. This was inspected and reamed until the true floor was reached. The anterior retractor was then released and entry and exit was provided by traction on the capsular flaps. I then reamed sequentially up to a 52mm reamer where good fit was obtained. The larger reamers were oriented based on anatomical reference of the anterior and lateral escobar to ensure proper abduction and anteversion. Positioning and size was confirmed with the fluoroscopy. A 52mm Depuy [place] acetabular component was selected. The acetabulum was reamed around the periphery with the selected acetabular size to prevent a rim fit. The deep tissues were irrigated. The acetabular component was then impacted in a position of about 40-45 degrees of abduction and 15-20 degrees of anteversion, using the patient?s anatomy as the ultimate landmark. Fluoroscopy was used to confirm this. There was excellent digital forensics investigator of the acetabular component and the inserting handle was removed. The acetabular liner, Depuy [id number] polyethylene liner, was inserted and lined up with the tines of the acetabular component. There was no soft tissue interposition. The liner was then impacted into position and confirmed to be well-seated. A portion of the summer-articular cocktail was then injected around the acetabulum into the capsule and periosteum. This cocktail consisted of 123mg of Ropivacaine, 0.25mg of Epinephrine, 0.04mg of Clonidine, and 15mg of Ketorolac, diluted to 50cc. Traction was released from the femur. The leg was rotated to 120 degrees. Any remaining medial capsule was released until the lesser trochanter was easily palpable. A Vasquez retractor was placed medially. The lateral capsule was further released into the shoulder to allow access to the greater trochanter. A Vasquez retractor was placed over the greater trochanter which allowed the trochanter to flip in front of the capsule for excellent exposure. The leg was brought down into maximal extension and 20 degrees of adduction while ensuring there was no impingement on the acetabulum. Any remnant capsule within the trochanter was released. Piriformis and obturator externis were identified and protected. There was excellent access to the proximal femur. The lateral neck remnant was removed with a rongeur. A blunt canal probe was used to identify the canal and trajectory for later broaching. A box osteotome initiated the broach course. A small curved rasp and a curved curette were used to work laterally. Broaching then began with a size 8 Corail broach. This was inserted manually around the trochanter and into the canal before mallet blows. The broach was seated to a few millimeters below the cut level based on the neck cut and the preoperative template. Sequential broaching was continued with the Medivancese pneumatic broaching device until a tight fit was obtained with good rotational control of the femur. A trial high offset neck was inserted along with a +5 trial head. The leg was brought out of extension and adduction and then reduced with traction and internal rotation. The leg was stable anteriorly in a position of 30 degrees of extension and 90 degrees of external rotation. Fluoroscopy was used to ensure there was no fracture and the stem was seated well. Leg lengths were checked with an AP pelvis and pelvic reference points. LiquidM navigation system was used to confirm appropriate positioning and leg length and offset. In order to correct the leg length, this broach was advanced approximately 4 mm. Once content with the desired offset and leg lengths, the leg was brought back into extension, external rotation and adduction. The periosteum and surrounding tissue was injected with remaining portion of the summer-articular cocktail. The proximal femur was irrigated as well as the deep tissues. The Depuy Actis high offset stem, size 5, was then manually inserted into the proximal femur making sure to control rotation. It was then malleted into position with light blows, giving breaks to allow bone expansion and decrease risk of fracture. The selected Depuy Altrx Ceramic Head, size 36+5mm, was then placed onto the clean and dry trunnion and secured with impaction onto the tapered fit. The leg was brought back out of extension and adduction and reduced with traction and internal rotation. Stability was confirmed with no shuck at 90 degrees of external rotation and 30 degrees of extension. No impingement through range of motion arc. Final x-ray images were obtained with fluoroscopy to confirm adequate positioning and no intraoperative fracture. There was notable injury to the tensor fascia rex involving approximately 15 to 20% of the medial aspect of the muscle belly. The muscle was adherent on either end with a gap in the middle. The deep tissues were thoroughly irrigated with Surgiphor Betadine solution. The capsule was then reapproximated with the previously placed tagging sutures. The TFL fascia was finally closed with a No. 2 Stratafix, barbed suture, making sure all the muscle fibers were appropriately positioned inside the fascial container. Deep tissues were then reapproximated with 0 Vicryl and a running 2-0 Vicryl. The skin was closed with a running 4-0 Monocryl in a subcuticular fashion. This was reinforced with skin glue. A Mepilex silver dressing was applied. At the end of the case, all counts were correct. Fei was transferred to the hospital bed without difficulty and suffering no apparent complication. Fei has a good prognosis. Physical therapy will start today and without restrictions, weight-bearing as tolerated. Aspirin 81mg BID will be used for DVT prophylaxis.
[2024-07-30] MEDS: oxyCODONE 5 MG TAB PO (13:58)
--- NOTE | 2024-07-30 14:13 | W.ANESPOSTOP ---
Postoperative Evaluation Date, Time and Location Date Performed: 07/30/24 Time Performed: 14:13 Patient Location: Day Surgery Unit Vital Signs Most Recent Imported Vital Signs: Most Recent Vital Signs Temp Pulse Resp BP Pulse Ox 36.4 C L 65 18 116/75 94 07/30/24 13:27 07/30/24 13:27 07/30/24 13:27 07/30/24 13:27 07/30/24 13:27 Pain Score Most Recent Pain Score: Most Recent Pain Score Pain Level 0 07/30/24 12:33 Assessment Mental Status: Awake (Alert & Oriented to Patient Baseline) Airway and Respiratory Function: Patent airway with normal (patient baseline) respiratory exam Cardiovascular Function: Hemodynamically Stable Hydration Status: Adequately Hydrated Nausea & Vomiting: No Nausea or Vomiting Pain: Pt. Denies Any Pain Peripheral Nerve Block: Patient did not receive a nerve block Teaching Patient Teaching: Discussed Safe Use of Pain Medication Given Recent Anesthesia
--- NOTE | 2024-07-30 14:45 | IN_ITS ---
PT Notes Visit Reasons: Bilateral hip DJD Physical Therapy Day Surgery Initial Evaluation Date: 07/30/2024 Referring Doctor: Dr. Rizvi PT Orders: PT CONSULT: Status post Ortho surgery Precautions: Weightbearing as tolerated BLE Patient Profile/Admitting Diagnosis: Patient is 69-year-old male presenting status post elective bilateral total hip arthroplasty via anterior approach on 07/30/[address] Rizvi. Postop uncomplicated PMHX: Cubital tunnel syndrome, bilateral knee pain, bilateral hip pain hallux valgus right foot, right carpal tunnel syndrome Social History/Home Situation: Pt resides in ---home/apt with ---LASHAY with/out rail. Pt --- for ambulation with/out (device). Pt --- for ADLs, meal prep, shopping, house hold management, medication management, iADLs. (?) drives employed as ---/retired. Equipment Owned/DME: [] Subjective: [] Objective: General Observation: [] Mental Status: Alert and oriented x 4 Pain: Bilateral hips ROM: Right Upper Extremity: Within normal limits Left Upper Extremity: Within normal limits Right Lower Extremity: hip flexion degrees, hip abduction degrees, knee flexion degrees, ankle DF Left Lower Extremity: hip flexion degrees, hip abduction degrees, knee flexion degrees, ankle DF Strength: Right Upper Extremity: 5/5 Left Upper Extremity: 5/5 Right Lower Extremity:Hip flexion: /5; hip abduction: /5; hip extension: /5; knee extension: /5; knee flexion: /5 ankle DF: /5 ; ankle PF: /5 Left Lower Extremity: Hip flexion: /5; hip abduction: /5; hip extension: /5; knee extension: /5; knee flexion: /5 ankle DF: /5 ; ankle PF: /5 Sensation: [] Bed Mobility/Transfers: [] Supine to sit [] Sit to stand [] Stand to sit [] Bed to chair [] Gait: [] Balance: [] Static Sitting: [] Dynamic Sitting: [] Static Standing: [] Dynamic Standing: [] Special Tests: Mobility Limitations Standardized Measure [facility] AM-PAC 6 clicks Basic Mobility Inpatient Short Form: Raw Score: [] CMS Score: [] Informed Consent/Education: Patient instructed in purpose of PT consult. Packet containing LEXY exercise protocol has been given to patient. Education and training on initial set of exercises that can be done at home have been completed with patient. Assessment: Patient presents with clinical signs and symptoms consistent with current/admitting diagnoses that have resulted to mobility limitations, gait instability, generalized weakness, and impairment of motor control as d emonstrated by the following impairment level findings: 1. Decreased strength to bilateral hip major muscle groups 2. Impaired standing balance 3. Limitation of joint range of motion in bilateral hip Impairments are contributing to the following functional limitations: 1. Inability to safely ambulate without assistive device 2. Increase completion time for mobility ADL performance 3. Increased fall risk Patient is assessed as a moderate complexity based on the following: History: 69-year-old male with impairment level findings, functional limitations, and past medical history as indicated above Examination: Demonstrable impairment in strength, balance, and mobility level with underlying impairments and functional limitations as documented above Presentation: Stable Decision Making: Moderate Goals: N/A. Plan of Care/Treatment Plan: N/A. PT evaluation and 1-2 treatment session only for functional mobility training using recommended AD and for HEP instruction. DISCHARGE RECOMMENDATIONS: Home with home exercise program and outpatient PT as indicated TREATMENT CODE/TIME: 44097 Thank you for the opportunity to participate in the care of this patient. Please sign an return this page within 30 days if you agree with the above POC. Thank you! Physician Signature Date [facility]
[2024-07-30] MEDS: Midodrine 2.5 MG TAB 5 MG PO (15:18)
--- NOTE | 2024-07-30 15:47 | PT.INIE ---
PT Notes Visit Reasons: Bilateral hip DJD Physical Therapy Day Surgery Initial Evaluation Date: 07/30/2024 Referring Doctor: GERBER Aguilar PT Orders: PT CONSULT: S/P Ortho surgery Precautions: WBAT on BLE with AD. Patient Profile/Admitting Diagnosis: Klaus is a 69-year-old male with degenerative joint disease of both hips status post bilateral total hip arthroplasties on postoperative day 0. 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 Beasley History of hydrocelectomy Hx of knee surgery (~2019) Right patellar tendonHistory of appendectomy H/O hernia repair Left inguinal hernia repairHx of colonoscopy Social History/Home Situation: Lives with a significant other in a farmhouse. Independent with all ADLs prior to surgery although has been having increasing difficulty due to worseing pain. Equipment Owned/DME: None Subjective: No report of dizziness, chest pain, and lightheadedness throughout session. Pain subsided with movement. Objective: General Observation: Mepilex Ag over surgical incision. TEDS in B legs and feet. Mental Status: A and O x 4 Pain: 7/10 at rest, 5/10 at rest ROM: Right Lower Extremity: Hip flexion only allows up to 90 degrees due to discomfort. Hip abduction WFL. Knee flexion WFL. Ankle dorsiflexion WFL. Ankle plantarflexion WFL. Left Lower Extremity: Hip flexion only allows up to 90 degrees due to discomfort. Hip abduction WFL. Knee flexion WFL. Ankle dorsiflexion WFL. Ankle plantarflexion WFL. Strength: Right Lower Extremity: Hip flexors 3-/5. Hip abductors 4-/5. Knee flexors 4-/5. Knee extensors 4-/5. Ankle dorsiflexors 4-/5. Ankle plantarflexors 4-/5. Left Lower Extremity: Hip flexors 3-/5. Hip abductors 4-/5. Knee flexors 4-/5. Knee extensors 4-/5. Ankle dorsiflexors 4-/5. Ankle plantarflexors 4-/5. Sensation: Intact as to pain and and light pressure in B LE Bed Mobility/Transfers: Minimal cueing provided for use of B hands as needed for support, movement sequence, AD management, and posture to reduce fall risk and minimize pain report Sit to stand contact guard assist Stand to sit contact guard assist Bed to chair contact guard assist Gait: Facilitate safe and correct performance of level surface ambulation covering a distance of 150 feet using reciprocal step through heel-toe gait pattern using front wheeled walker and contact-guard assist of PT with minimal verbal cueing for correct gait pattern, weight distribution onto walker, AD management, and posture to minimize fall risk and reduce pain report. Stairs: Guided patient with safe and correct negotiation 2 x 6 inch steps and 3 x 4 inch steps while holding onto bilateral rails with step to gait pattern with minimal verbal cueing provided for hand placement, increased hip and knee flexion on both sides during each send to minimize fall risk and reduce pain report. Balance: Static Sitting: Normal Dynamic Sitting: Good Static Standing: Fair Dynamic Standing: Fair Special Tests: Mobility Limitations Standardized Measure [facility] AM-PAC 6 clicks Basic Mobility Inpatient Short Form: Raw Score: 24 CMS Score: 0% deficit Informed Consent/Education: Patient instructed in purpose of PT consult. Packet containing LEXY exercise protocol has been given to patient. Education and training on initial set of exercises that can be done at home have been completed with patient. Trained patient with correct performance of exercises below to maximize motor control, joint flexibility, soft tissue extensibility of the B hip musculature to facilitate return to independent functional mobility performance. Access Code: [email or web address] URL: [email or web address] Date: 07/30/2023 Prepared by: Milagro Ring Exercises - Gluteal Sets - 1 x daily - 7 x weekly - 1 sets - 10 reps - 5 hold - Supine Heel Slide - 1 x daily - 7 x weekly - 1 sets - 10 reps - 5 hold - Supine Ankle Pumps - 1 x daily - 7 x weekly - 1 sets - 10 reps - 5 hold - Seated March - 1 x daily - 7 x weekly - 1 sets - 10 reps - 5 hold - Seated Long Arc Quad - 1 x daily - 7 x weekly - 1 sets - 10 reps - 5 hold Assessment: Patient requires the use of a front wheeled walker for all mobility ADL performance to maximize independence and reduce fall risk. Pain report subsided with mobilization. No report of lightheadedness throughout session. Patient presents with clinical signs and symptoms consistent with current/admitting diagnoses that have resulted to mobility limitations, gait instability, generalized weakness, and impairment of motor control as demonstrated by the following impairment level findings: 1. Decreased strength to B hip major muscle groups 2. Impaired standing balance 3. Limitation of joint range of motion in B hips Impairments are contributing to the following functional limitations: 1. Inability to safely ambulate without assistive device 2. Increase completion time for mobility ADL performance 3. Increased fall risk Patient is assessed as a 90489 moderate complexity based on the following: History: 69-year-old male with impairment level findings, functional limitations, and past medical history as indicated above Examination: Demonstrable impairment in strength, balance, and mobility level with underlying impairments and functional limitations as documented above Presentation: Evolving Decision Makin moderate complexity Goals: N/A. PT evaluation and 1-2 treatment sessions only for functional mobility training using recommended AD and for HEP instruction. Plan of Care/Treatment Plan: N/A. PT evaluation and 1-2 treatment session only for functional mobility training using recommended AD and for HEP instruction. DISCHARGE RECOMMENDATIONS: Home when medically cleared by orthopedic surgeon. Recommend outpatient PT services in order to optimize functional mobility outcomes and facilitate return to independent community ambulation without an assistive device. TREATMENT CODE/TIME: 20595 x 20 minutes for 1 unit, 02574 x 15 minutes for 1 unit (15: 47?16: 22). Thank you for the opportunity to participate in the care of this patient. Please sign an return this page within 30 days if you agree with the above POC. Thank you! Physician Signature [id number] moderate date [facility] Milagro Ring PT, DPT, CLT [facility], [place]
== END 2024-07-30 16:55 | disposition home or self-care (01) ==
PROVIDERS: PCP Family Medicine; Visit Provider Student in an Organized Health Care Education/Training Program
PROC: 0SR90JZ Replacement of Right Hip Joint with Synthetic Substitute, Open Approach (ICD-10-PCS; CPT 27130; principal; 2024-07-30 08:15)
DX: M16.0 Bilateral primary osteoarthritis of hip (principal); I10 Essential (primary) hypertension; E78.5 Hyperlipidemia, unspecified; M54.50 Low back pain, unspecified
CPT/HCPCS: 20985; 27130; 97162; 97530; 73501; C1776; J0690; J1100; J2250; J2371; J2401; J2405; J2704; J3010

== ENCOUNTER 2024-08-12 11:47 | Outpatient (CLI) | payer MEDICARE, SELFPAY ==
--- NOTE | 2024-08-12 11:00 | DI.RAD_ITS ---
Exam(s) XR HIP PELVIS ADULT BL EXAM: XR HIP PELVIS ADULT BL INDICATION: 1ST POST OP S/P BILAT THAs. COMPARISON: CR XR PELVIS AP from 07/19/2024 XA XR HIP RT IN OR from 07/30/2024 XA XR HIP LT IN OR from 07/30/2024 TECHNIQUE: 2D digital imaging was performed. Two views. FINDINGS: Bilateral hip prostheses are again noted. There has been no change in the alignment. There are no a bnormal surrounding bony lucencies DATA REPOSITORY: RADIATION DOSE DELIVERED:
== END 2024-08-12 11:48 | disposition home or self-care (01) ==
LOC: DIORS 11:47
PROVIDERS: PCP Family Medicine; Referring Provider Family Medicine; Visit Provider Student in an Organized Health Care Education/Training Program
DX: Z96.643 Presence of artificial hip joint, bilateral (principal); Z47.1 Aftercare following joint replacement surgery
CPT/HCPCS: 73521; 99024

== ENCOUNTER → 2024-09-09 10:47 | Outpatient (BNVA) | payer MEDICARE, SELFPAY | PROVIDERS: PCP Family Medicine; Referring Provider Family Medicine; Visit Provider Student in an Organized Health Care Education/Training Program | DX: Z47.1 Aftercare following joint replacement surgery (principal); Z96.643 Presence of artificial hip joint, bilateral | CPT/HCPCS: 99024 ==

== ENCOUNTER 2025-07-31 11:37 | Outpatient (CLI) | payer MEDICARE, SELFPAY ==
--- NOTE | 2025-07-31 09:45 | DI.RAD_ITS ---
Exam(s) XR HIP LT AP LAT ONLY XR HIP RT AP LAT ONLY EXAM: XR HIP LT AP LAT ONLY CLINICAL HISTORY: ANNUAL F/U BILAT THAs. TECHNIQUE: 2D digital imaging was performed. Two views of both hips. COMPARISON: CR XR PELVIS AP from 07/19/2024 CR XR HIP PELVIS ADULT BL from 08/12/2024 CR XR HIP RT AP LAT ONLY from 07/31/2025 FINDINGS: BONES: No acute fracture is present. No bony destructive lesion is seen. JOINTS: No dislocation present. The SI joints and pubic symphysis are intact. Stable alignment of bilateral hip prostheses. SOFT TISSUE: Normal. IMPRESSION: Stable appearance of bilateral hip prostheses. DATA REPOSITORY: RADIATION DOSE DELIVERED:
== END 2025-07-31 11:38 | disposition home or self-care (01) ==
LOC: DIORS 11:37
PROVIDERS: PCP Family Medicine; Referring Provider Family Medicine; Visit Provider Student in an Organized Health Care Education/Training Program
DX: Z47.1 Aftercare following joint replacement surgery (principal); Z96.643 Presence of artificial hip joint, bilateral
CPT/HCPCS: 99213; 73502